=== PATIENT | male | born 1975 | race Caucasian/White ===

== ENCOUNTER 2019-02-09 06:55 | Emergency (ER) | payer SELFPAY ==
[~2019-02-09] VITALS: Ht 175.3 cm; Wt 102.1 kg
[2019-02-09 07:00] VITALS: BP 151/72
--- NOTE | 2019-02-09 07:00 | NUR ---
PT IN WHEELCHAIR TO ER BED 08
[2019-02-09] MEDS ORDERED: NACL 0.9% 1,000 ML IV SCH (07:16)
[2019-02-09] MEDS ORDERED: ONDANSETRON 4 MG/2 ML VIAL IVP ONE ×2 (07:20→08:50)
[2019-02-09] MEDS ORDERED: KETOROLAC 30 MG/ML VIAL IVP ONE (07:20)
--- NOTE | 2019-02-09 07:22 | NUR ---
RECEIVED REPORT FROM COMMERCIAL CRABBER RN. PT BIB SELF TO THE ED WITH THE CHIEF C/O ACUTE LLQ ABDOMINAL PAIN. ABDOMEN SOFT ROUND AND NONTENDER. HYPOACTIVE BOWEL SOUND. PT HAS HX OF KIDNEY STONE. REPORTS NAUSEA AND ABDOMINAL PAIN 10/10 AT THIS TIME. PT EVALUATED BY ER MD. WILL CARRY OUT ORDER.
--- NOTE | 2019-02-09 07:51 | NUR ---
PT INSTRUCTED TO PROVIDE URINE. URINE CUP PROVIDED FOR SAMPLE COLLECTION.
--- NOTE | 2019-02-09 07:51 | NUR ---
LABS WORKS DONE.
--- NOTE | 2019-02-09 07:56 | NUR ---
PT TAKEN TO THE CT.
--- NOTE | 2019-02-09 08:04 | NUR ---
BACK FROM CT.
[2019-02-09 08:16] LABS: BASOPHILS % (AUTO) 0.6 % (0.0-2.0); EOSINOPHILS # (AUTO) 0.1 K/uL (0-0.4); EOSINOPHILS % (AUTO) 0.8 % (0.0-4.0); LYMPHOCYTES % (AUTO) 13.3 % (20.5-51.1); MEAN CORPUSCULAR HEMOGLOBIN 29 pg (27-31); MEAN CORPUSCULAR HGB CONC 34 g/dL (33-37); MEAN CORPUSCULAR VOLUME 84.3 fL (80-94); MONOCYTES # (AUTO) 0.4 K/uL (0.8-1.0); NEUTROPHILS % (AUTO) 79.3 % (42.2-75.2); PLATELET COUNT (AUTO) 205 K/uL (140-450); RED BLOOD CELL COUNT(AUTO) 4.86 MIL/uL (4.20-6.10); RED CELL DISTRIBUTION WIDTH 12.9 % (11.6-13.7); WHITE BLOOD COUNT (AUTO) 7.5 K/uL (4.8-10.8)
[2019-02-09 08:17] LABS: ALBUMIN 4.3 g/dL (3.4-5.0); ANION GAP 14.8 (8-16); CARBON DIOXIDE 23.7 mmol/L (21-32); CREATININE 1.2 mg/dL (0.7-1.3); POTASSIUM 3.5 mmol/L (3.5-5.1); TOTAL BILIRUBIN 0.4 mg/dL (0.0-1.0)
[2019-02-09] MEDS ORDERED: TAMSULOSIN 0.4 MG CAP PO SCH (08:35)
--- NOTE | 2019-02-09 09:15 | NUR ---
PT C/O LT SIDE FLANK PAIN 12/31. PT CALLING FOR RIDE HOME. ER MD NOTIFED-PT UNABLE TO GIVE UA AT THIS TIME.
[2019-02-09] MEDS ORDERED: HYDROmorphone PFS 2 MG/ML SYR IVP ONE (09:40)
--- NOTE | 2019-02-09 09:52 | NUR ---
PT C/O 06/02 LT SIDE FLANK PAIN-IVP MEDS GIVEN-NOW PAIN 10/31. ER MD NOTIFTED. PT STS " I FEEL SO MUCH BETER."
[2019-02-09] MEDS ORDERED: METOCLOPRAMIDE 10 MG/2 ML INJ VIAL IVP ONE (09:55)
[2019-02-09] MEDS ORDERED: diphenhydrAMINE 50 MG/ML VIAL IVP ONE (09:55)
--- NOTE | 2019-02-09 09:58 | NUR ---
Pt report given to [facility]. Transfer of care at this time.
--- NOTE | 2019-02-09 10:06 | NUR ---
PT VOMITED X1. ER MD MADE AWARE. ADMINISTERED MEDS PER ORDER.
--- NOTE | 2019-02-09 10:23 | NUR ---
PT DESAT TO 86%. DENIES SOB OR DIFFICULTY BREATHING. KEPT HOB ELEVATED. PLACED PT ON O2 AT 2 LTR/MIN VIA NC.
[2019-02-09 10:37] LABS: APPEARANCE,URINE CLEAR (CLEAR); BILIRUBIN,URINE NEGATIVE (NEGATIVE); BLOOD, URINE 2+ (NEGATIVE); COLOR,URINE YELLOW (YELLOW); LEUKOCYTE ESTERASE ,URINE NEGATIVE (NEGATIVE); NITRITE, URINE NEGATIVE (NEGATIVE); PH,URINE 7.5 (5.0-9.0); UGLUCOSE NEGATIVE (NEGATIVE)
[2019-02-09 11:08] LABS: RBC,URINE 50-80 /HPF (0-5); WBC,URINE 0-5 /HPF (0-5)
--- NOTE | 2019-02-09 11:13 | NUR ---
TOOK O2 OFF. SATURATING 100 % IN ROOM AIR. BREATHING NORMALLY.
--- NOTE | 2019-02-09 11:20 | NUR ---
PT RE-EVALUATED BY DULCE RIOJAS.
[2019-02-09 11:22] VITALS: BP 124/80
--- NOTE | 2019-02-09 11:24 | NUR ---
Patient discharged with v/s stable. Written and verbal after care instructions given and explained. Patient alert, oriented and verbalized understanding of instructions. Ambulatory with steady gait. All questions addressed prior to discharge. ID band removed. Patient advised to follow up with PMD. Rx of Motrin, Percoset, Colace, Flomax, and Valium given. Patient educated on indication of medication including possible reaction and side effects. Opportunity to ask questions provided and answered.
== END 2019-02-09 11:24 | disposition home or self-care (01) ==
LOC: MED 06:55
DX: N20.0 Calculus of kidney (principal); Z87.442 Personal history of urinary calculi; Z87.19 Personal history of other diseases of the digestive system
CPT/HCPCS: 36415; 74176; 80053; 81001; 83690; 85025; 96374; 96375; 96376; 99284; J1170; J1200; J1885; J2405; J2765; J7030